=== PATIENT | male | born 1955 | race Caucasian/White ===

== ENCOUNTER 2018-05-19 01:57 | Inpatient (IN) | payer OTHER ==
[~2018-05-19] VITALS: Ht 190.5 cm; Wt 84.8 kg
[2018-05-19] VITALS (15 sets, daily range): BP systolic 126–156; BP diastolic 61–94
[~2018-05-19 01:57] MED LIST: ASPI-1471 PO; LISI-374 PO
[2018-05-19] MEDS ORDERED: fentaNYL CITR 250 MCG/5 ML AMP ONE (07:34)
[2018-05-19] MEDS ORDERED: LIDOCAINE 2% IV 100 MG/5ML SYR ONE (07:35)
[2018-05-19] MEDS ORDERED: PROPOFOL EMUL(*) 10MG/ML 20 ML 20 ML ONE ×3 (07:36→14:00)
[2018-05-19] MEDS ORDERED: PROPOFOL(*)1000 MG/100 ML VIAL 100 ML ONE (07:45)
[2018-05-19] MEDS ORDERED: REMIFENTANIL HCL 1 MG VIAL ONE (07:48)
[2018-05-19] MEDS ORDERED: NS 0.9% 20 ML SDV 40 ML ONE (07:49)
[2018-05-19] MEDS ORDERED: BACITRACIN OINT 15 GM TUBE TP ONE (08:41)
[2018-05-19] MEDS ORDERED: DEXAMETHASONE SOD PHOS 10MG/ML ONE ×2 (08:41→12:25)
[2018-05-19] MEDS ORDERED: LIDOCAINE/SOD BICARB 8.4% SYR ID ONE (09:30)
[2018-05-19] MEDS ORDERED: NORMOSOL R SOLN(*) 1000 ML BAG 1,000 ML IV PRN (09:30)
[2018-05-19] MEDS ORDERED: FAMOTIDINE 20 MG TAB PO ONE (09:30)
[2018-05-19] MEDS ORDERED: ceFAZolin(*) 2GM/D5W 50ML 50 ML IVPB ONE (09:30)
[2018-05-19] MEDS ORDERED: PREGABALIN 150 MG CAPSULE PO ONE (09:30)
[2018-05-19] MEDS ORDERED: MIDAZOLAM 2 MG/2 ML VIAL IVP PRN (09:30)
[2018-05-19] MEDS ORDERED: ACETAMINOPHEN 500 MG TAB PO ONE (09:30)
[2018-05-19] MEDS ORDERED: KETAMINE HCL 200 MG/20 ML MDV ONE ×2 (12:23→13:24)
[2018-05-19] MEDS ORDERED: ONDANSETRON 4 MG/2 ML VIAL ONE (12:25)
[2018-05-19] MEDS ORDERED: VANCOMYCIN 1 GM VIAL ONE (14:02)
[2018-05-19] MEDS ORDERED: fentaNYL CITR 100 MCG/2 ML AMP ONE ×2 (14:13→15:21)
[2018-05-19] MEDS ORDERED: ROPIVACAINE 0.2% 20 ML VIAL ONE (14:18)
--- NOTE | 2018-05-19 15:17 | OPERATIVE REPORT 1 ---
EVENT DATE: May 19, 2018 SURGEON: Quintin Reza MD ANESTHESIOLOGIST: Michael Cruz MD ANESTHESIA: General endotracheal. IN STORE BANKER: Fausto Sharpe PA-C PREOPERATIVE DIAGNOSIS Right C6 radiculopathy with posterior C5, C6 facet cyst. POSTOPERATIVE DIAGNOSIS Right C6 radiculopathy with posterior C5, C6 facet cyst. PROCEDURE PERFORMED Cervical hemilaminotomy and ortiz hole foraminotomy. IV FLUIDS 1100 cc. ESTIMATED BLOOD LOSS 40 cc. IMPLANTS None. SPECIMENS Posterior cervical extradural mass. DRAINS None. COMPLICATIONS There was an incidental durotomy. DISPOSITION Post anesthesia care unit. INDICATIONS FOR SURGERY The patient is a 62-year-old gentleman who presented to my clinic with radiating right upper extremity pain, numbness and tingling at C6 distribution. His physical examination revealed weakness in the biceps and a diminished biceps reflex as well as diminished sensation in the C6 distribution. X-rays and MRI were obtained that showed a posterior mass most consistent with a facet cyst compromising and compressing the C5, C6 foramina and nerve root. Secondary to ongoing symptoms and failure of nonsurgical treatment, the patient was offered and elected to undergo surgical intervention. Prior to surgery I explained in detail to the patient the possible risks of surgery. These risks include bleeding, infection, damage to surrounding structures, nerve root injury, spinal fluid leak, meningitis, , blindness, sexual dysfunction, autonomic nervous system dysfunction and other unforeseen medical and surgical complications. An understanding that in general spinal surgery is more predictive at improving extremity discomfort than axial spinal pain was stressed. DESCRIPTION OF PROCEDURE On the day of surgery, the patient was met in the preoperative hold area and all questions were answered. The operative site was identified and marked by myself. The patient was brought in good condition to the operating room and after succumbing to anesthesia, a Lange headrest tongs were placed in the standard fashion and tightened to 60 inch pounds. He was then turned into a prone position in the [place] headrest on a OR bed and laminectomy rolls. All bony protuberances and soft tissues were well padded in the standard fashion. The arms were secured at the side and retracted inferiorly to afford access to the posterior cervical spine. Preoperative antibiotics were administered according to the appropriate timing schedule. Care was taken to maintain appropriate perfusion pressures during anesthesia. At the conclusion of the procedure, sponge and needle counts were correct times 2. Final timeout was undertaken by members of the operating team to confirm correct patient, correct levels and correct surgery. The patient was then prepped and draped in the standard sterile orthopedic fashion. A vertical incision was made overlying the intended surgical levels and sharp dissection was carried out down to the spinous processes of the cervical spine. Soft tissues were elevated off the posterior elements in a subperiosteal manner and a lateral radiograph was obtained to confirm appropriate spinal levels. Once we had fully exposed the facet joint and the interlaminar space at C5, C6 level on the right side, I used a high speed torres to perform a foraminotomy. Once I got into the canal, we found first some caseous appearing material consistent with old dried synovial fluid. We removed this in pieces and then ultimately took out many small fragments of cystic appearing tissue. This was sent to the lab for evaluation. I was able to sweep around with a nerve hook to insure that we had good decompression and then we found some more tissue a bit medially. As this was removed with a micropituitary rongeur, we encountered a spinal fluid leak. This was controlled temporarily with DuraGen and surgical patties while we completed our decompression and insured that we had fully decompressed that foramen. Once this was completed, we left a large piece of DuraGen over the dural defect and then used DuraSeal to fully seal the spinal fluid leak. Once this was completed, no further CSF was encountered. The wound was then irrigated with copious sterile saline solution and we sprinkled Vancomycin powder in the wound prior to closure. The wound was then closed in layers using interrupted sutures for the ligamentum nuchae, inverted interrupted sutures for the subcutaneous tissue and then a running, locking Nylon suture for the skin. Sponge and needle counts were correct times 2. POSTOPERATIVE CARE PLAN The patient will remain in the hospital until he meets discharge criteria. We will definitely keep him overnight with his head elevated to insure no persistent spinal fluid leak is present. He will follow up with me 2 weeks postoperatively for a wound check and examination. BABAK
[2018-05-19] MEDS ORDERED: HYDROmorphone HCL 2 MG/ML SDV IVP PRN (15:25)
[2018-05-19] MEDS ORDERED: BISACODYL 10 MG SUPP PR PRN (15:25)
[2018-05-19] MEDS ORDERED: LR(*) 1000 ML BAG 1,000 ML IV PRN (15:25)
[2018-05-19] MEDS ORDERED: ACETAMINOPHEN 500 MG TAB PO PRN (15:25)
[2018-05-19] MEDS ORDERED: MAGNESIUM HYDROXIDE* 30ML UDCP PO PRN (15:25)
[2018-05-19] MEDS ORDERED: oxyCODONE HCL 5 MG CAP PO PRN (15:25)
[2018-05-19] MEDS ORDERED: diphenhydrAMINE 25 MG CAP PO PRN (15:25)
[2018-05-19] MEDS ORDERED: ONDANSETRON 4 MG/2 ML VIAL IVP PRN (15:25)
[2018-05-19] MEDS ORDERED: BENZOCAINE/MENTHOL 1 EACH LOZG PO PRN (15:25)
[2018-05-19] MEDS ORDERED: FLUSH 10 ML SYR IVP PRN (15:25)
[2018-05-19] MEDS ORDERED: ACETAMINOPHEN(*)1000 MG/100 ML 100 ML IVPB PRN (15:25)
[2018-05-19] MEDS ORDERED: DIAZEPAM 5 MG TAB PO PRN (15:25)
--- NOTE | 2018-05-19 15:52 | RADIOLOGY IMAGING REPORT ---
[place] [facility] [place] NAME: Max Nair : 1955 MR: [id number] V: [id number] EXAM DATE: ORDERING PHYSICIAN: PARK NICOLAS TECHNOLOGIST: [place] [facility] [place] : 1955 Visit/Account:[id number] Date of Sevice: 05/19/2018 CERVICAL SPINE 2 OR 3 VIEW HISTORY: C5-C6 DISC HERNIATION Additional history: None COMPARISON: None. FINDINGS: Single lateral intraoperative view demonstrates a localization device projecting over the C5-6 facet. Patient is intubated. Lumbar spine is aligned. IMPRESSION: Intraoperative localization C5-6 with instrument over the C5-6 facets Report Dictated By: Servando Jones MD at 05/19/2018 3:46 PM Report E-Signed By: Servando Jones MD at 05/19/2018 3:48 PM WSN:[id number]
--- NOTE | 2018-05-19 16:29 | Hospitalist Progress Note ---
Subjective Progress Notes Subjective Patient seen post-op. Reviewed PMHx (HTN) and medications (lisinopril). At present he reports doing well. No CP/SOB/N/V. Physical Exam Vital Signs Date Time Temp Pulse Resp B/P (MAP) Pulse Ox O2 Delivery O2 Flow Rate FiO2 05/19/18 16:06 92 Nasal Cannula 3.0 05/19/18 15:58 98.7 85 16 153/79 (103) General Appearance: Alert, Awake Cardiovascular: Regular Rate and Rhythm Respiratory: Clear to Auscultation Assessment and Plan Problems: (1) S/P cervical spinal fusion Status: Acute Assessment & Plan: He appears stable post-operatively. As per Dr. Reza. (2) HTN (hypertension) Status: Chronic Assessment & Plan: He has been managed with lisinopril 40mg PO BID. Will mo nitor BPs and resume the lisinopril per parameters. Exam Sepsis Risk: No Definite Risk LYNNETTE GILLIS MD May 19, 2018 16:29
--- NOTE | 2018-05-19 16:46 | NUR ---
Physical Therapy Impression PT eval complete. Pt has no mobility limitations and is safe to DC when medically appropriate. Physical Therapy Goals Patient's Goals
[2018-05-19] MEDS: APAP/HYDROCODONE 325/5 TAB PO PRN (17:02)
[2018-05-19] MEDS ORDERED: NS(*) 0.9% 250 ML BAG 250 ML ONE (20:59)
[2018-05-19] MEDS: LISINOPRIL 20 MG TAB PO SCH (21:00)
[2018-05-19] MEDS: ceFAZolin(*) 2GM/D5W 50ML 50 ML IVPB SCH (21:00)
[2018-05-19] MEDS: DOCUSATE SODIUM 100 MG CAP PO SCH (21:03)
[2018-05-20] VITALS: BP 127/77
[2018-05-20 01:00] VITALS: BP 126/78
[2018-05-20 02:00] VITALS: BP 124/75
[2018-05-20 03:00] VITALS: BP 129/78
[2018-05-20] MEDS: ceFAZolin(*) 2GM/D5W 50ML 50 ML IVPB SCH (03:28)
[2018-05-20] MEDS: APAP/HYDROCODONE 325/5 TAB PO PRN ×2 (03:28→08:00)
[2018-05-20] MEDS ORDERED: LOR5/325 PO (07:01)
[2018-05-20] MEDS ORDERED: DIA5 PO (07:04)
[2018-05-20] MEDS ORDERED: DOCU240C84 PO (07:05)
[2018-05-20] MEDS: DOCUSATE SODIUM 100 MG CAP PO SCH (08:02)
[2018-05-20] MEDS: LISINOPRIL 20 MG TAB PO SCH (08:02)
[2018-05-20 08:05] VITALS: BP 130/82
[2018-05-20 10:28] VITALS: Ht 190.5 cm; Wt 84.8 kg
[2018-05-20] MEDS ORDERED: SUCCINYLCHOL CHL 100MG/5ML SYR IVP ONE (10:44)
--- NOTE | 2018-05-20 10:48 | Hospitalist Progress Note ---
Subjective Progress Notes Subjective He was admitted after cervical spine surgery. He has no complaints this morning. He would like to go home today. Patient Complains of: Cardiovascular: No: Chest Pain Respiratory: No: Shortness of Breath Physical Exam Vital Signs Date Time Temp Pulse Resp B/P (MAP) Pulse Ox O2 Delivery O2 Flow Rate FiO2 05/20/18 08:05 98.0 59 12 130/82 (98) 95 Nasal Cannula 3.0 Intake and Output 05/20/18 00:00 Intake Total 2200 ml Output Total 100 ml Balance 2100 ml Intake Oral 450 ml IV Total 1750 ml Output Estimated Blood Loss 100 ml # Voids 1 General Appearance: Alert, Awake, No Acute Distress, Afebrile Neuro: No Gross deficits Cardiovascular: Regular Rate and Rhythm Respiratory: No Respiratory Distress, Clear to Auscultation GI: Soft and Non-Tender Psych: Alert & Oriented X3, Appropriate Mood & Affect Assessment and Plan Problems: (1) S/P cervical spinal fusion Status: Acute Assessment & Plan: He appears stable post-operatively. As per Dr. Reza. (2) HTN (hypertension) Status: Chronic Assessment & Plan: He has been managed with lisinopril 40mg PO BID. He will hold his Lisinopril for two days, then resume on Thursday. If he feels dizzy aft er taking medication, he will stop Lisinopril and follow up with his PCP. (3) Acute respiratory insufficiency, postoperative Status: Acute Assessment & Plan: He will go home with oxygen to use at all times. Exam Sepsis Risk: No Definite Risk Problem Qualifiers (1) HTN (hypertension): Hypertension type: essential hypertension Qualified Codes: I10 - Essential (primary) hypertension MIGUEL ANGEL BARBOSAP May 20, 2018 10:48
== END 2018-05-20 10:45 | disposition home or self-care (01) | DRG 29 ==
LOC: OR 01:57 → MED 15:55
PROVIDERS: ADMIT Orthopaedic Surgery; ATTEND Orthopaedic Surgery
PROC: 00UT0JZ Supplement Spinal Meninges with Synthetic Substitute, Open Approach (ICD-10-PCS; 2018-05-19)
PROC: 01N10ZZ Release Cervical Nerve, Open Approach (ICD-10-PCS; principal; 2018-05-19 11:57)
DX: M54.12 Radiculopathy, cervical region (principal); G97.41 Accidental puncture or laceration of dura during a procedure; G96.19 Other disorders of meninges, not elsewhere classified; R06.89 Other abnormalities of breathing; Y83.8 Other surgical procedures as the cause of abnormal reaction of the patient, or of later complication, without mention of misadventure at the time of the procedure; Y75.3 Surgical instruments, materials and neurological devices (including sutures) associated with adverse incidents; Z87.891 Personal history of nicotine dependence; Z98.1 Arthrodesis status
CPT/HCPCS: 72020; 88305; 97161; J0330; J0690; J1100; J2001; J2405; J2704; J2795; J3010; J3370; J3490; J7050